=== PATIENT | male | born 1980 | race Caucasian/White ===

== ENCOUNTER 2025-03-02 20:15 | Emergency (ER) | payer OTHER ==
[~2025-03-02] VITALS: Ht 177.8 cm; Wt 88.5 kg
[2025-03-02] MEDS ORDERED: FLUORESCEIN SODIUM OPHTH 1 EA STRIP ONE (20:42)
[2025-03-02] MEDS ORDERED: TETRAcaine 5 ML BOTTLE ONE (20:42)
[2025-03-02] MEDS: TETRACAINE HCL 0.5% OPHTALMIC 15 ML BOTTLE EACHEYE ONE (20:56)
[2025-03-02] MEDS: FLUORESCEIN SODIUM OPHTH 1 EA STRIP RIGHTEYE ONE (20:56)
[2025-03-02] MEDS ORDERED: DEXT1DRO6 EACHEYE (21:01)
[2025-03-02 21:05] VITALS: BP 129/77; TEMP 98.2; O2SAT 99
== END 2025-03-02 21:06 | disposition home or self-care (01) ==
LOC: ER 20:26
DX: H10.9 Unspecified conjunctivitis (principal); H57.11 Ocular pain, right eye